=== PATIENT | female | born 1965 | race Caucasian/White ===

== ENCOUNTER 2024-04-08 12:00 | Emergency (ER) | payer MEDICAID ==
[~2024-04-08] VITALS: Ht 162.6 cm; Wt 61.0 kg
[2024-04-08 12:06] VITALS: O2SAT 99
[2024-04-08 12:22] VITALS: BP 110/67; TEMP 98.9
[2024-04-08] MEDS: PREDNISONE 20MG TABLET PO ONE (14:31)
[2024-04-08 15:24] VITALS: PULSE 96; RESP 16; O2SAT 96
[2024-04-08] MEDS: IPRATROPIUM/ALBUTEROL 0.5-3(2.5)MG/3ML NEB HHN ONE (15:24)
[2024-04-08] MEDS ORDERED: ALBU18HF2 IH (15:26)
[2024-04-08] MEDS ORDERED: P50 MT (15:26)
[2024-04-08] MEDS ORDERED: ALBU2.5V13 NEB (15:26)
== END 2024-04-08 16:00 | disposition home or self-care (01) ==
LOC: ER 12:00
DX: J44.1 Chronic obstructive pulmonary disease with (acute) exacerbation (principal); E11.9 Type 2 diabetes mellitus without complications; Z88.0 Allergy status to penicillin; Z88.1 Allergy status to other antibiotic agents; Z88.2 Allergy status to sulfonamides; Z88.3 Allergy status to other anti-infective agents; Z88.8 Allergy status to other drugs, medicaments and biological substances
CPT/HCPCS: 71045; 94640; 94664; 94070; 98960; 99283; J7512; Z7610 ×3